=== PATIENT | male | born 1965 | race Caucasian/White ===

== ENCOUNTER 2019-09-11 16:16 | Emergency (ER) | payer BC ==
[~2019-09-11] VITALS: Ht 175 cm; Wt 97.5 kg
[~2019-09-11 16:16] MED LIST: ASPI-586 PO; ENOX100D4 SC; PANT40TA2 PO; WARF3TAB56; WARF5TAB PO
[2019-09-11] MEDS ORDERED: LIDOCAINE 1% INJ 20 ML 20 ML VIAL ONE (16:17)
[2019-09-11] MEDS ORDERED: TETANUS,DIPTH,PERTUSS P/F (BOOSTRIX) 0.5 ML VIAL IM ONE (16:17)
--- OUTSIDE RECORDS SUMMARY | 2019-09-11 16:26 | XMS REPORT ---
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 Active 128812889 Problem Clotting disorder D68.9 Sep, Active 62023577 Problem Phantom limb pain G54.6 Nov, Active 292040551 Problem Peripheral neuropathy G62.9 Oct, Activ e 982679278 Problem Anemia D64.9 Sep, Active 8335344 00 ALLERGIES No Information ENCOUNTERS Encounter Location Date Diagnosis [address] [id number] [address] Jan, [address] [id number], [place] [address] Jan, intermediate (current) use of a nticoagulants Z79.[address] [id number], [place] [address] Jan, [address] [id number], [place] [address] Jan, [address] [id number], [place] [address] Jan, Clotting disorder D68.9 ; Hi atal hernia K44.9 ; S/P bilateral BKA (below knee amputation) Z89.512 and Anemia D64.[address] [id number] [place] [address] Jan, 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 Z79.01 [facility] [place] [address] [id number] [place] [address] Jan, 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 Z79.01 [facility] [place] [address] [id number] [place] [address] Jan, intermediate (current) use of a nticoagulants Z79.01 [facility] [place] [address] [id number] [place] [address] August, [facility] [address] [id number] [place] [address] Jul, [facility] DON[facility] [address] [id number] [place] [address] Jul, intermediate (current) use of a nticoagulants Z79.01 [facility] DON[facility]D [address] [id number] [place] [address] Jul, Essential (primary) hyperten phuong I10 ; Phantom limb pain G54.6 and Peripheral neuropathy G62.9 [facility] DONALD [address] [id number] [place] [address] Jul, 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 Z79.01 [facility] DON[facility]D [address] [id number] [place] [address] Jun, 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 Z79.01 and Essential (primary) hypertension I10 [facility] [address] [facility] [id number] [address] [place] [address] Mar, [facility] [address] [facility] [id number] [address] [place] [address] Feb, [facility] [address] [facility] [id number] [address] [place] [address] Nov, IMMUNIZATIONS No Known Immunizations SOCIAL HISTORY Never Assessed REASON FOR VISIT protime results PLAN OF CARE VITAL SIGNS MEDICATIONS Unknown Medications RESULTS No Results PROCEDURES No Known procedures INSTRUCTIONS MEDICATIONS ADMINISTERED No Known Medications MEDICAL (GENERAL) HISTORY Type Description Date Medical History Anemia Medical History Peripheral neuropathy Medical History Phantom limb pain Medical History Clotting disorder Medical History Arterial occlusion Medical History Anticoagulation management encounter Medical History S/P bilateral BKA (below knee amputation ) Medical History Essential (primary) hypertension Surgical History L vein remapping 2010 Surgical History L leg amputation 2010 Surgical History R leg vein remapping 2010 Surgical History R leg amputation 2010 Hospitalization History vein remapping and amputation 2010 Hospitalization History vomiting, hernia 01/29/19
--- OUTSIDE RECORDS SUMMARY | 2019-09-11 16:26 | XMS REPORT ---
Author Author Javad GONZAELS 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 Active 290576128 Problem Clotting disorder D68.9 Sep, Active 49540035 Problem Phantom limb pain G54.6 Nov, Active 655566508 Problem Peripheral neuropathy G62.9 Oct, Activ e 906588648 Problem Anemia D64.9 Sep, Active 3386015 00 ALLERGIES No Information ENCOUNTERS Encounter Location Date Diagnosis [address] [place] [address] Jan, [address] [place] [address] Jan, 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 Z79.01 [address] [place] [address] Jan, [address] [place] [address] Jan, [address] [place] [address] Jan, Clotting disorder D68.9 ; Hi atal hernia K44.9 ; S/P bilateral BKA (below knee amputation) Z89.512 and Anemia D64.[address] [place] [address] Jan, snf (current) use of a nticoagulants Z79.01 [facility] DON[facility] [place] [address] [place] [address] Jan, 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 Z79.01 [facility] [address] [place] [address] Jan, 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 Z79.01 [facility] [place] [address] [place] [address] August, [facility] [place] [address] Jul, [facility] DONALD ROSAD[place] [address] [place] [address] Jul, snf (current) use of a nticoagulants Z79.01 [facility] DONALD ROSAD[place] [address] [place] [address] Jul, Essential (primary) hyperten phuong I10 ; Phantom limb pain G54.6 and Peripheral neuropathy G62.9 [facility] DONALD ROSAD[place] [address] [place] [address] Jul, 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 Z79.01 [facility] DONALD [address] [place] [address] Jun, 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 Z79.01 and Essential (primary) hypertension I10 [facility] [address] [id number] [place] [address] Mar, [facility] [address] [id number] [place] [address] Feb, [facility] [address] [id number] [place] [address] Nov, IMMUNIZATIONS No Known Immunizations SOCIAL HISTORY Never Assessed REASON FOR VISIT Lab (walk-in) PLAN OF CARE VITAL SIGNS MEDICATIONS Unknown Medications RESULTS No Results PROCEDURES Procedure Date Ordered Result Body Site VENIPUNCT, ROUTINE* July 23, 2018 MANUAL CELL COUNT, EACH July 23, 2018 LIPID PANEL July 23, 2018 COMPREHEN METABOLIC PANEL July 23, 2018 PROTHROMBIN TIME July 23, 2018 INSTRUCTIONS MEDICATIONS ADMINISTERED No Known Medications MEDICAL [...]
--- OUTSIDE RECORDS SUMMARY | 2019-09-11 16:26 | XMS REPORT | Continuity of Care Document ---
Author Organization Unknown Address Unknown Phone Unavailable Allergies Active Description Code Type Severity Reaction Onset Reported/Identified Relationship to Patient Clinical Status Yes No Known Drug Allergies [id number] Drug Allergy Unknown N/A 01/29/2019 Medications There is no data. 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 01/29/2019 ANAHI MORENO DOI Ot Z86.71 8 PERSONAL HISTORY OF OTHER VENOUS THROMBO 01/29/2019 JOSH WILSON ANDERSON Ot I82.40 9 ACUTE EMBOLISM AND THOMBOS UNSP DEEP VN 01/29/2019 ANAHI MORENO DOI Ot K22.2 ESOPHAGEAL OBSTRUCTION 01/29/2019 JOSH WILSON ANDERSON Ot K44.9 DIAPHRAGMATIC HERNIA WITHOUT OBSTRUCTION 01/29/2019 JOSH WILSON ANDERSON Ot R11.2 NAUSEA WITH VOMITING, UNSPECIFIED 01/29/2019 JOSH WILSON ANDERSON Ot Z79.01 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 AND 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 (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) USE OF ANTICOAGULANT 01/29/2019 JOSH WILSON ANDERSON Ot Z79.82 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 AND CHECKER (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) USE OF ASPIRIN 01/29/2019 JOSH WILSON ANDERSON Ot Z79.89 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 Results Test Result Range LIPID PANEL - 07/23/18 08:29 CHOLESTEROL, TOTAL 179 mg/dL <200 HDL CHOLESTEROL 32 mg/dL >40 TRIGLYCERIDES 232 mg/dL <150 LDL-CHOLESTEROL 112 mg/dL (calc) NRG CHOL/HDLC RATIO 5.6 (calc) <5.0 NON HDL CHOLESTEROL 147 mg/dL (calc) <13 0 CMP - 07/23/18 08:29 GLUCOSE 88 mg/dL 65-99 UREA NITROGEN (BUN) 20 mg/dL 7-25 CREATININE 0.86 mg/dL 0.70-1.33 eGFR NON-AFR. CHADIAN 100 mL/min/1.73m2 > OR = 60 eGFR 116 mL/min/1.73m2 > OR = 60 BUN/CREATININE RATIO NOT APPLICABLE (calc) 6-22 SODIUM 142 mmol/L 135-146 POTASSIUM 4.7 mmol/L 3.5-5.3 CHLORIDE 104 mmol/L 98-110 CARBON DIOXIDE 29 mmol/L 20-32 CALCIUM 9.3 mg/dL 8.6-10.3 PROTEIN, TOTAL 7.2 g/dL 6.1-8.1 ALBUMIN 4.6 g/dL 3.6-5.1 GLOBULIN 2.6 g/dL (calc) 1.9-3.7 ALBUMIN/GLOBULIN RATIO 1.8 (calc) 1.0-2. 5 BILIRUBIN, TOTAL 0.4 mg/dL 0.2-1.2 ALKALINE PHOSPHATASE 57 U/L 40-115 AST 13 U/L 10-35 ALT 17 U/L 9-46 CBC w/MANUAL DIFF - 07/23/18 08:29 WHITE BLOOD CELL COUNT 5.8 Thousand/uL 3 .8-10.8 RED BLOOD CELL COUNT 4.92 Million/uL 4.2 0-5.80 HEMOGLOBIN 14.2 g/dL 13.2-17.1 HEMATOCRIT 44.6 % 38.5-50.0 MCV 90.7 fL 80.0-100.0 MCH 28.9 pg 27.0-33.0 MCHC 31.8 g/dL 32.0-36.0 RDW 13.8 % 11.0-15.0 PLATELET COUNT TNP Thousand/uL NRG ABSOLUTE NEUTROPHILS 2500 cells/uL 1500- 7800 ABSOLUTE MONOCYTES 319 cells/uL 200-950 ABSOLUTE EOSINOPHILS 162 cells/uL 15-500 ABSOLUTE BASOPHILS 52 cells/uL 0-200 NEUTROPHILS 43.1 % NRG LYMPHOCYTES 47.7 % NRG MONOCYTES 5.5 % NRG EOSINOPHILS 2.8 % NRG BASOPHILS 0.9 % NRG ABSOLUTE LYMPHOCYTES 2767 cells/uL 850-3 900 PLATELET ESTIMATION ADEQUATE CBC MORPHOLOGY NORMAL COMMENT(S) NRG PT/INR - 07/23/18 08:29 INR 1.2 NRG PT 11.9 sec 9.0-11.5 Complete blood count (CBC) with automate d white blood cell (WBC) differential - 01/29/19 00:15 Blood leukocytes automated count (number/volume) 8.9 10*3/uL 4.3-11.0 Blood erythrocytes automated count (number/volume) 4.81 10*6/uL 4.35-5.85 Venous blood hemoglobin measurement (mass/volume) 14.6 g/dL 13.3-17.7 Blood hematocrit (volume fraction) 45 % 40-54 Automated erythrocyte mean corpuscular volume 93 [ foz_us] 80-99 Automated erythrocyte mean corpuscular h emoglobin (mass per erythrocyte) 30 pg 25-34 Automated erythrocyte mean corpuscular h emoglobin concentration measurement (mass/volume) 33 g/dL 32-36 Automated erythrocyte distribution width ratio 13. 4 % 10.0- 14.5 Automated blood platelet count (count/volume) 355 10*3/uL 130-400 Automated blood platelet mean volume measurement 9.4 [foz_us] 7.4-10.4 Automated blood neutrophils/100 leukocytes 54 % 42-75 Automated blood lymphocytes/100 leukocytes 38 % 12-44 Blood monocytes/100 leukocytes 6 % 0-12 Automated blood eosinophils/100 leukocytes 2 % 0-10 Automated blood basophils/100 leukocytes 0 % 0-10 Blood neutrophils automated count (number/volume) 4.8 10*3 1.8-7.8 Blood lymphocytes automated count (number/volume) 3.4 10*3 1.0-4.0 Blood monocytes automated count (number/volume) 0. 5 10*3 0.0-1.0 Automated eosinophil count 0.2 10*3/uL 0 .0-0.3 Automated blood basophil count (count/volume) 0.0 10*3/uL 0.0-0.1 PT panel in platelet poor plasma by coag ulation assay - 01/29/19 00:15 Prothrombin time (PT) in platelet poor plasma by coagu lation assay 17.9 s 12.2-14.7 INR in platelet poor plasma or blood by coagulation as say 1.4 0.8-1.4 Activated partial thromboplastin time (a PTT) in platelet poor plasma bycoagulation assay - 01/29/19 00:15 Activated partial thromboplastin time (a PTT) in platelet poor plasma bycoagulation assay 33 s 24-35 Lipase - 01/29/19 00:15 Lipase 76 U/L 8-78 Comprehensive metabolic panel - 01/29/19 00:15 Serum or plasma sodium measurement (moles/volume) 140 mmol/L 135-145 Serum or plasma potassium measurement (moles/volume) 4.1 mmol/L 3.6-5.0 Serum or plasma chloride measurement (moles/volume) 101 mmol/L 98-107 Carbon dioxide 27 mmol/L 21-32 Serum or plasma anion gap determination (moles/volume) 12 mmol/L 5-14 Serum or plasma urea nitrogen measurement (mass/volume ) 18 mg/dL 7-18 Serum or plasma creatinine measurement (mass/volume) 0.90 mg/dL 0.60-1.30 Serum or plasma urea nitrogen/creatinine mass ratio 20 NRG Serum or plasma creatinine measurement w ith calculation of estimated glomerular filtration rate > NRG Serum or plasma glucose measurement (mass/volume) 117 mg/dL 70-105 Serum or plasma calcium measurement (mass/volume) 9.2 mg/dL 8.5-10.1 Serum or plasma total bilirubin measurement (mass/volu me) 0.2 mg/dL 0.1-1.0 Serum or plasma alkaline phosphatase anna surement (enzymatic activity/volume) 71 U/L 40-136 Serum or plasma aspartate aminotransfera se measurement (enzymatic activity/volume) 16 U/L 5-34 Serum or plasma alanine aminotransferase measurement (enzymatic activity/volume) 15 U/L 0-55 Serum or plasma protein measurement (mass/volume) 7.6 g/dL 6.4-8.2 Serum or plasma albumin measurement (mass/volume) 4.6 g/dL 3.2-4.5 Magnesium - 01/29/19 00:15 Magnesium 2.0 mg/dL 1.6-2.4 TROPONIN I FS - 01/29/19 00:15 TROPONIN I FS < 0.30 <0.30 PROBNP FS - 01/29/19 00:15 PROBNP FS < 75.0 <75.0 TROPONIN I FS - 01/29/19 01:50 TROPONIN I FS < 0.30 <0.30 PT/INR - 02/03/19 11:31 INR 3.6 NRG PT 34.4 sec 9.0-11.5 PT/INR - 02/07/19 07:10 INR 1.2 NRG PT 12.4 sec 9.0-11.5 Encounters ACCT No. Visit Date/Time Discharge Status Pt. Type Provider Facility Loc./Unit Complaint [id number] 02/07/2019 07:00:00 02/07/2019 23:59: 59 [facility] Outpatient [facility] [id number] 02/07/2019 07:00:00 Document Registration [id number] 02/03/2019 09:45:00 Document Registration [id number] 07/23/2018 09:15:00 Document Registration [id number] 01/29/2019 04:20:00 019 12:18:00 DIS Inpatient ANDERSON MORENO DO, V [facility] 4TH INTRACTABLE NAUSEA, VOM ITING, HIATAL HERNIA
--- NOTE | 2019-09-11 16:27 | ED Upper Extremity ---
General Chief Complaint: Laceration Stated Complaint: RT HAND LACERATION History of Present Illness Date Seen by Provider: September 11, 2019 Time Seen by Provider: 16:15 Initial Comments This patient is a 54-year-old male that presents to the emergency department for laceration to hand on the right and first and second and third fingers. Patient states he was on a ladder started to fall and reached and grabbed mental 10 the cut his hand. Bleeding appears to be a chronic controlled at this time. Patient does take some problem daily detectable clotting disorder. Patient is a bilaterally PT lower extremities. Patient has full movement of his hands. We'll clean wounds and evaluate treat further needed we'll suture shortly. Patient will receive a tetanus shot today. Pain/Injury Location: right hand, right 2nd finger, right 3rd finger Allergies and Home Medications Allergies Coded Allergies: No Known Drug Allergies (Unverified , 01/29/19) Home Medications Enoxaparin Sodium 100 Mg/1 Ml Syringe, 90 MG SC Q12H Prescribed by: ANDERSON MORENO on 01/29/19 1220 Pantoprazole Sodium 40 Mg Tablet.dr, 40 MG PO DAILY Prescribed by: JUSTINA COE on 01/29/19 1433 Warfarin Sodium 5 Mg Tablet, 5 MG PO DAILY Prescribed by: ANDERSON MORENO on 01/29/19 1220 Patient Home Medication List Home Medication List Reviewed: Yes Review of Systems Constitutional: No no symptoms reported; see HPI; No chills, No diaphoresis, No dizziness, No fever, No malaise, No weakness, No weight gain, No weight loss, No other EENTM: No see HPI, No no symptoms reported, No ear discharge, No hearing loss, No ear pain, No blurred vision, No double vision, No eye pain, No tearing, No vision loss, No dental problems, No hoarseness, No mouth pain, No mouth swelling, No epistaxis, No nose congestion, No nose pain, No throat pain, No throat swelling, No other Respiratory: No no symptoms reported, No see HPI, No cough, No dyspnea on exertion, No hemoptysis, No orthopnea, No phlegm, No short of breath, No stridor, No wheezing, No other Cardiovascular: No no symptoms reported, No see HPI, No chest pain, No edema, No Hx of Intervention, No palpitations, No syncope, No vascular heart diseas, No other Gastrointestinal: No RUQ, No LUQ, No RLQ, No LLQ, No no symptoms reported, No see HPI, No abdominal pain, No constipation, No diarrhea, No dysphagia, No hematemesis, No heartburn, No jaundice, No loss of appetite, No melena, No nausea, No vomiting, No other Musculoskeletal: No no symptoms reported, No see HPI, No back pain, No gout, No joint pain, No joint swelling, No muscle pain, No muscle stiffness, No muscle cramps, No muscle twitching, No muscle weakness, No neck pain, No other Skin: No no symptoms reported; see HPI; No change in color, No change in hair/nails, No dryness, No hx of skin cancer; lesions; No lumps, No pruritus, No rash, No other All Other Systems Reviewed Negative Unless Noted: Yes Past Mfgocqr-Irxmsm-Oqdydq Hx Patient Social History 2nd Hand Smoke Exposure: No Recent Hopitalizations: No Immunizations Up To Date Date of Pneumonia Vaccine: Jun 25, 2017 Seasonal Allergies Seasonal Allergies: No Past Medical History Surgeries: Yes Amputation, Orthopedic Respiratory: No Cardiac: Yes Deep Vein Thrombosis Neurological: No Genitourinary: No Gastrointestinal: No Musculoskeletal: No Endocrine: No HEENT: No Cancer: No Psychosocial: No Integumentary: No Blood Disorders: No Family Medical History No Pertinent Family Hx Physical Exam Vital Signs Vital Signs - First Documented 09/11/19 16:22 Temp 36.4 Pulse 98 Resp 16 Pulse Ox 96 Capillary Refill : Height, Weight, BMI Height: '" Weight: lbs. oz. kg; 29.38 BMI Method: General Appearance: WD/WN, no apparent distress HEENT: PERRL/EOMI, normal ENT inspection, TMs normal, pharynx normal Neck: non-tender, full range of motion, supple, normal inspection Cardiovascular: normal peripheral pulses, regular rate, rhythm, no edema, no gallop, no JVD, no murmur Respiratory: chest non-tender, lungs clear, normal breath sounds, no respiratory distress, no accessory muscle use Gastrointestinal: normal bowel sounds, non tender, soft, no organomegaly, no pulsatile mass, abnormal bowel sounds Hand: Right, laceration (proximally 4-5 cm long right palm.) Skin: other (laceration also to the middle phalanx on the second finger and distal phalanx of the third finger right hand. Both approximately 2 cm.) Procedures/Interventions Wound Location: Upper Extremities Other Wound Location Palm of right hand distal third finger and middle phalanx of the second finger. Palm wound is 5 cm in length and extends to the base of the third finger for another 2-1/2 cm. Distal third finger is 2 cm in length appears to be a flap. And middle phalanx of the second finger appears to be 2 cm in length. Torso sutures placed 16 droperidol 3 wounds. Wound Explored: no foreign body removed Irrigated w/ Saline (ccs): 500 Betadine Prep?: Yes Anesthesia: 1% Lidocaine Suture: Ethlion Suture Size: 4-0 Number of Sutures: 16 Sterile Dressing Applied?: Yes Progress Women's covered with Kerlix and 4 x 4's dressings. Tube gauze. Of the fingers. Troponin water: The place. Progress/Results/Core Measures Results/Orders My Orders Orders - ROZINA MORALES MD Lidocaine 1% Inj 20 Ml (Xylocaine 1% Inj (09/11/19 16:30) Tetanus/Diphtheria Inj (Adult) (Tenivac (09/11/19 16:30) Lidocaine 1% Inj 20 Ml (Xylocaine 1% Inj (09/11/19 16:17) Dipht,Pertuss(Acell),Tet Adult (Boostrix (09/11/19 16:17) Ceftriaxone For Im Use (Rocephin For Im (09/11/19 16:45) Lidocaine 1% Inj 20 Ml (Xylocaine 1% Inj (09/11/19 16:45) Medications Given in ED Current Medications Medications Dose Ordered Sig/Kartik Route Start Time Stop Time Status Last Admin Dose Admin Diphtheria/ Tetanus/Acell Pertussis 0.5 ml STK-MED ONCE IM 09/11/19 16:17 09/11/19 16:26 DC 09/11/19 16:31 0.5 ML Lidocaine HCl 20 ml ONCE ONCE INJ 09/11/19 16:30 09/11/19 16:31 DC 09/11/19 16:30 20 ML Vital Signs/I&O 09/11/19 16:22 Temp 36.4 Pulse 98 Resp 16 B/P (MAP) Pulse Ox 96 Progress Progress Note : Time: 16:59 Progress Note Was repaired with 4-0 Ethilon. See procedural note for same. Patient received tetanus and 1 g Rocephin IM. Continue with wound care daily as instructed. Dressing changes twice daily with triple in about appointment. Apply kirlex and 4 x 4's as instructed. Finish antibiotics as instructed Keflex twice a day for 7 days. Wound check with PCP in 3-5 days. Sutures to be removed in 12-14 days. Continue all home medications. Departure Impression Primary Impression: Hand laceration Disposition: HOME, SELF-CARE Condition: Stable Departure-Patient Inst. Decision time for Depature: 17:01 Referrals: SELFFRANSISCA MD (PCP/Family) Primary Care Physician Patient Instructions: Laceration Repair With Stitches (DC) Add. Discharge Instructions: Continue with wound care daily as instructed. Dressing changes twice daily with triple in about appointment. Apply kirlex and 4 x 4's as instructed. Finish antibiotics as instructed Keflex twice a day for 7 days. Wound check with PCP in 3-5 days. Sutures to be removed in 12-14 days. Continue all home medications. All discharge instructions reviewed with patient and/or family. Voiced understanding. Scripts Cephalexin (Keflex) 500 Mg Capsule 500 MG PO BID for 7 Days, #14 CAP 0 Refills Prov: ROZINA MORALES MD 09/11/19 ROZINA MROALES MD September 11, 2019 16:27
[2019-09-11] MEDS ORDERED: LIDOCAINE 1% INJ 20 ML 20 ML VIAL INJ ONE ×2 (16:30→16:45)
[2019-09-11] MEDS ORDERED: TETANUS & DIPHTHERIA TOX,ADULT 0.5 ML (TENIVAC) IM ONE (16:30)
[2019-09-11] MEDS ORDERED: cefTRIAXone 1,000 MG/2.86 ml vial (IM ONLY) IM SCH (16:45)
[2019-09-11] MEDS ORDERED: CEPH-507 PO (17:02)
[2019-09-11 17:23] VITALS: BP 166/90
== END 2019-09-11 17:23 | disposition home or self-care (01) ==
LOC: EDUNIT# 16:16 → ER FS 16:18
DX: S61.210A Laceration without foreign body of right index finger without damage to nail, initial encounter (principal); S61.212A Laceration without foreign body of right middle finger without damage to nail, initial encounter; S61.411A Laceration without foreign body of right hand, initial encounter; Z23 Encounter for immunization; Z79.01 Long term (current) use of anticoagulants; Z86.718 Personal history of other venous thrombosis and embolism; W11.XXXA Fall on and from ladder, initial encounter; W26.8XXA Contact with other sharp object(s), not elsewhere classified, initial encounter
CPT/HCPCS: 13152; 90715

== ENCOUNTER 2020-02-18 22:12 | Emergency (ER) | payer BC ==
[~2020-02-18 22:12] MED LIST changes: +CEPH-507 PO; -WARF5TAB PO; +WARF5TAB2 PO
--- NOTE | 2020-02-18 22:17 | ED General ---
General Stated Complaint: NAUSEA/VOMITING Source of Information: Patient History of Present Illness Date Seen by Provider: Feb 18, 2020 Time Seen by Provider: 22:17 Initial Comments Patient is a 54 y/o male with PMH significant for symptomatic hiatal hernia and GERD who comes to the ER with what he describes to be an "attack." He reports some nausea and vomiting that started last evening and has persisted throughout the day. He can't keep down any food or fluids currently and he expresses some concern about becoming dehydrated. He does not c/o abdominal pain. He states he has similar episodes chronically and has already been evaluated by general surgery and is supposed to have the hernia repaired but that he is currently waiting to hear back from the surgeon's office regarding when to schedule. Today he has no symptoms different from prior episodes. No pain, fever, hematemesis. No viral symptoms. No urinary symptoms. Allergies and Home Medications Allergies Coded Allergies: No Known Drug Allergies (Unverified , 01/29/19) Home Medications Cephalexin 500 Mg Capsule, 500 MG PO BID Prescribed by: ROZINA MORALES on 09/11/19 1702 Enoxaparin Sodium 100 Mg/1 Ml Syringe, 90 MG SC Q12H Prescribed by: ANDERSON MORENO on 01/29/19 1220 Pantoprazole Sodium 40 Mg Tablet.dr, 40 MG PO DAILY Prescribed by: JUSTINA COE on 01/29/19 1433 Warfarin Sodium 5 Mg Tablet, 5 MG PO DAILY Prescribed by: ANDERSON MORENO on 01/29/19 1220 Patient Home Medication List Home Medication List Reviewed: Yes Review of Systems Review of Systems Constitutional: no symptoms reported Respiratory: no symptoms reported Cardiovascular: no symptoms reported Gastrointestinal: see HPI Genitourinary: no symptoms reported Musculoskeletal: no symptoms reported Skin: no symptoms reported All Other Systems Reviewed Negative Unless Noted: Yes Past Ommjhie-Cnheyf-Qawwto Hx Patient Social History 2nd Hand Smoke Exposure: No Recent Foreign Travel: No Contact w/Someone Who Travel: No Recent Hopitalizations: No Immunizations Up To Date Date of Pneumonia Vaccine: Jun 25, 2017 Seasonal Allergies Seasonal Allergies: No Past Medical History Surgeries: Yes Amputation, Orthopedic Respiratory: No Cardiac: Yes Deep Vein Thrombosis Neurological: No Genitourinary: No Gastrointestinal: No Musculoskeletal: No Endocrine: No HEENT: No Cancer: No Psychosocial: No Integumentary: No Blood Disorders: Yes (clotting disorder) Family Medical History No Pertinent Family Hx Physical Exam Vital Signs Vital Signs - First Documented 02/18/20 22:17 Temp 37.5 Pulse 118 Resp 18 B/P (MAP) 169/100 (123) Pulse Ox 95 O2 Delivery Room Air Capillary Refill : Height, Weight, BMI Height: '" Weight: lbs. oz. kg; 31.00 BMI Method: General Appearance: No Apparent Distress, WD/WN HEENT: PERRL/EOMI Neck: Full Range of Motion Respiratory: Lungs Clear, Normal Breath Sounds Cardiovascular: Regular Rate, Rhythm, No Murmur Gastrointestinal: Normal Bowel Sounds, Non Tender, Soft Neurologic/Psychiatric: Alert, Oriented x3 Skin: Normal Color Procedures/Interventions Suture Size: 4-0 Progress/Results/Core Measures Suspected Sepsis SIRS Temperature: Pulse: Respiratory Rate: Laboratory Tests 02/18/20 22:25: White Blood Count 9.7 Blood Pressure / Mean: Laboratory Tests 02/18/20 22:25: Creatinine 0.95, Platelet Count 402H, Total Bilirubin 0.8 Results/Orders Lab Results Laboratory Tests Test 02/18/20 22:25 Range/Units White Blood Count 9.7 4.3-11.0 10^3/uL Red Blood Count 5.14 4.35-5.85 10^6/uL Hemoglobin 16.1 13.3-17.7 G/DL Hematocrit 48 40-54 % Mean Corpuscular Volume 92 80-99 FL Mean Corpuscular Hemoglobin 31 25-34 PG Mean Corpuscular Hemoglobin Concent 34 32-36 G/DL Red Cell Distribution Width 13.5 10.0-14.5 % Platelet Count 402 H 130-400 10^3/uL Mean Platelet Volume 8.8 7.4-10.4 FL Immature Granulocyte % (Auto) 0 % Neutrophils (%) (Auto) 69 42-75 % Lymphocytes (%) (Auto) 24 12-44 % Monocytes (%) (Auto) 6 0-12 % Eosinophils (%) (Auto) 1 0-10 % Basophils (%) (Auto) 0 0-10 % Neutrophils # (Auto) 6.6 1.8-7.8 X 10^3 Lymphocytes # (Auto) 2.3 1.0-4.0 X 10^3 Monocytes # (Auto) 0.6 0.0-1.0 X 10^3 Eosinophils # (Auto) 0.1 0.0-0.3 10^3/uL Basophils # (Auto) 0.0 0.0-0.1 10^3/uL Immature Granulocyte # (Auto) 0.0 0.0-0.1 10^3/uL Sodium Level 142 135-145 MMOL/L Potassium Level 3.9 3.6-5.0 MMOL/L Chloride Level 100 98-107 MMOL/L Carbon Dioxide Level 29 21-32 MMOL/L Anion Gap 13 5-14 MMOL/L Blood Urea Nitrogen 12 7-18 MG/DL Creatinine 0.95 0.60-1.30 MG/DL Estimat Glomerular Filtration Rate > 60 BUN/Creatinine Ratio 13 Glucose Level 138 H 70-105 MG/DL Calcium Level 10.0 8.5-10.1 MG/DL Corrected Calcium 8.5-10.1 MG/DL Total Bilirubin 0.8 0.1-1.0 MG/DL Aspartate Amino Transf (AST/SGOT) 15 5-34 U/L Alanine Aminotransferase (ALT/SGPT) 24 0-55 U/L Alkaline Phosphatase 76 40-136 U/L Total Protein 8.2 6.4-8.2 GM/DL Albumin 4.9 H 3.2-4.5 GM/DL Lipase 25 8-78 U/L My Orders Orders - ROZINA CORTES DO Ed Iv/Invasive Line Start (02/18/20 22:21) Cbc With Automated Diff (02/18/20 22:21) Comprehensive Metabolic Panel (02/18/20 22:21) Lipase (02/18/20 22:21) Ns Iv 1000 Ml (Sodium Chloride 0.9%) (02/18/20 22:30) Diphenhydramine Injection (Benadryl Inje (02/18/20 22:30) Famotidine Injection (Pepcid Injection) (02/18/20 22:30) Prochlorperazine Injection (Compazine In (02/18/20 22:30) Ns Iv 1000 Ml (Sodium Chloride 0.9%) (02/18/20 23:00) Ondansetron Injection (Zofran Injectio (02/18/20 23:00) Rx-Ondansetron Po (Rx-Zofran Po) (02/18/20 23:43) Rx-Ondansetron Po (Rx-Zofran Po) (02/18/20 23:44) Medications Given in ED Current Medications Medications Dose Ordered Sig/Kartik Route Start Time Stop Time Status Last Admin Dose Admin Diphenhydramine HCl 25 mg ONCE ONCE IVP 02/18/20 22:30 02/18/20 22:31 DC 02/18/20 22:31 25 MG Famotidine 20 mg ONCE ONCE IVP 02/18/20 22:30 02/18/20 22:31 DC 02/18/20 22:31 20 MG Ondansetron HCl 4 mg ONCE ONCE IVP 02/18/20 23:00 02/18/20 23:01 DC 02/18/20 23:01 4 MG Prochlorperazine Edisylate 10 mg ONCE ONCE IV 02/18/20 22:30 02/18/20 22:31 DC 02/18/20 22:31 10 MG Vital Signs/I&O 02/18/20 22:17 Temp 37.5 Pulse 118 Resp 18 B/P (MAP) 169/100 (123) Pulse Ox 95 O2 Delivery Room Air Capillary Refill : Progress Note : Time: 22:34 Progress Note Patient is seen and examined. No acute distress and abdominal examination is non-acute. Tonight we will check labs, give IVF's, and medications for symptom relief. Do not feel imaging indicated based on examination. 23:45: No s/p two liters NS. HR normalized and patient feeling much improved after compazine, benadryl, and zofran. Requesting d/c home. Labs reviewed and w/o significant derangement. D/c home with Rx for zofran. He will f/u with PCP. Departure Impression Primary Impression: Nausea and vomiting Disposition: HOME, SELF-CARE Condition: Improved Departure-Patient Inst. Referrals: SELF,FRANSISCA HANDLEY (PCP/Family) Primary Care Physician ROZINA CORTES DO Feb 18, 2020 22:17
[2020-02-18] MEDS ORDERED: NS IV 1000 ML 1,000 ML IV SCH ×2 (22:30→23:00)
[2020-02-18] MEDS ORDERED: FAMOTIDINE 20MG/2ML IV (PEPCID) IVP ONE (22:30)
[2020-02-18] MEDS ORDERED: PROCHLORPERAZINE 10 MG/2ML INJ (COMPAZINE) IV ONE (22:30)
[2020-02-18] MEDS ORDERED: diphenhydrAMINE 50 MG/ML INJ (BENADRYL) IVP ONE (22:30)
[2020-02-18 22:31] LABS: BASOPHILS % (AUTO) 0 % (0-10); EOSINOPHILS % (AUTO) 1 % (0-10); HEMATOCRIT 48 % (40-54); HEMOGLOBIN 16.1 G/DL (13.3-17.7); LYMPHOCYTES % (AUTO) 24 % (12-44); MEAN CORPUSCULAR HEMOGLOBIN 31 PG (25-34); MEAN CORPUSCULAR HGB CONC 34 G/DL (32-36); MEAN CORPUSCULAR VOLUME 92 FL (80-99); MEAN PLATELET VOLUME 8.8 FL (7.4-10.4); MONOCYTES % (AUTO) 6 % (0-12); NEUTROPHILS % (AUTO) 69 % (42-75); PLATELET COUNT 402 10^3/uL (130-400); WHITE BLOOD COUNT 9.7 10^3/uL (4.3-11.0)
[2020-02-18 22:32] LABS: EOSINOPHILS # (AUTO) 0.1 10^3/uL (0.0-0.3); LYMPHOCYTES # (AUTO) 2.3 X 10^3 (1.0-4.0); MONOCYTES # (AUTO) 0.6 X 10^3 (0.0-1.0); NEUTROPHILS # (AUTO) 6.6 X 10^3 (1.8-7.8)
[2020-02-18 22:49] LABS: SODIUM 142 MMOL/L (135-145)
[2020-02-18 22:50] LABS: ALANINE AMINOTRANSFERASE 24 U/L (0-55); ALBUMIN 4.9 GM/DL (3.2-4.5); ALKALINE PHOSPHATASE 76 U/L (40-136); BILIRUBIN,TOTAL 0.8 MG/DL (0.1-1.0); BUN/CREATININE RATIO 13; CARBON DIOXIDE 29 MMOL/L (21-32); CHLORIDE 100 MMOL/L (98-107); CREATININE SERUM 0.95 MG/DL (0.60-1.30); GFR ESTIMATED > 60; GLUCOSE 138 MG/DL (70-105); LIPASE 25 U/L (8-78); POTASSIUM 3.9 MMOL/L (3.6-5.0); TOTAL PROTEIN 8.2 GM/DL (6.4-8.2)
[2020-02-18] MEDS ORDERED: ONDANSETRON 4 MG/2 ML (SDV) Z0FRAN IVP ONE (23:00)
[2020-02-18] MEDS ORDERED: RX-ONDANSETRON 4 MG ODT (ZOFRAN) PPK #4 PO STA (23:43)
[2020-02-18] MEDS ORDERED: RX-ONDANSETRON 4 MG ODT (ZOFRAN) PPK #4 ONE (23:44)
[2020-02-18 23:46] VITALS: BP 138/118
[2020-02-18] MEDS ORDERED: ONDA4TAB11 PO (23:48)
== END 2020-02-18 23:47 | disposition home or self-care (01) ==
LOC: EDUNIT# 22:12 → ER FS 22:16
DX: R11.2 Nausea with vomiting, unspecified (principal); Z86.718 Personal history of other venous thrombosis and embolism; Z79.01 Long term (current) use of anticoagulants
CPT/HCPCS: 36415; 80053; 83690; 85025